=== PATIENT | male | born 1950 | race American Indian/Alaskan Native ===

== ENCOUNTER 2017-07-31 20:56 | Emergency (ER) | payer OTHER ==
[2017-07-31 21:26] VITALS: BP 152/88; PULSE 81; RESP 20; TEMP 98.4; O2SAT 98
[2017-07-31] MEDS ORDERED: Absorbable Gelatin Sponge Size 12-7 MM STA (21:38)
--- NOTE | 2017-07-31 21:41 | C.PDOC ---
History Of Present Illness 67 year old male with PMH of DM presents to ED for evaluation of wound to right pinky toe. He reports he was cutting his toenails with scissors, slipped and cut the tip of his toe. He reports the area was bleeding and wants to have wound evaluated, since he is diabetic. He is unsure of tetanus status. He does not take blood thinners. Time Seen by Provider: 07/31/17 21:31 Chief Complaint (Nursing): Abnormal Skin Integrity History Per: Patient History/Exam Limitations: no limitations Onset/Duration Of Symptoms: Hrs Current Symptoms Are (Timing): Still Present Location Of Injury: Right: Foot (Pinky) Quality Of Symptoms: Other (Wound bleeding) Severity: Mild Recent travel outside of the [place]: No Past Medical History Reviewed: Historical Data, Nursing Documentation, Vital Signs Vital Signs: Last Vital Signs Temp 98.4 F 07/31/17 21:20 Pulse 81 07/31/17 21:20 Resp 20 07/31/17 22:44 BP 152/88 H 07/31/17 21:20 Pulse Ox 98 07/31/17 21:55 - Medical History PMH: Diabetes, Hepatitis (C) Surgical History: No Surg Hx Family History: States: Unknown Family Hx - Social History Hx Alcohol Use: No Hx Substance Use: No Review Of Systems Except As Marked, All Systems Reviewed And Found Negative. Skin: Positive for: Other (Wound) Physical Exam - Physical Exam Appears: Non-toxic, No Acute Distress Skin: Warm, Dry Head: Atraumatic, Normacephalic Eye(s): bilateral: Normal Inspection Neck: Normal ROM Chest: Symmetrical Extremity: Normal ROM (x4), Capillary Refill (<2 seconds), Other (Right foot 5th toe distal volar tip with small 0.5cm avulsion with active bleeding) Pulses: Left Dorsalis Pedis: Normal, Right Dorsalis Pedis: Normal Neurological/Psych: Oriented x3, Normal Speech, Normal Motor, Normal Sensation Gait: Steady ED Course And Treatment O2 Sat by Pulse Oximetry: 98 (Room air) Pulse Ox Interpretation: Normal Medical Decision Making Medical Decision Making: Impression: 67 year old male with an avulsion wound to 5th digit of right foot. Plan: * Tetanus vaccination * Gel form Procedure: Wound irrigated with NS. Pressure gauze dressing applied. Avulsion wound continues to bleed. Gelfoam was applied to wound in normal sterile fashion. Patient was observed for hemostasis. On re-eval, the wound is no longer bleeding , hemostasis was achieved. Nonadherent dressing applied and bandage applied around toe and foot. Patient was instructed to remove bandage in one day and the non-adherent dressing. Explain gelfoam will fall off on its own. Disposition Counseled Patient/Family Regarding: Need For Followup - Disposition Referrals: Podiatry Clinic [Outside] Disposition: HOME/ ROUTINE Disposition Time: 21:38 Condition: GOOD Additional Instructions: Gelfoam was used to close your wound, do not apply ointment to area as it may dissolve glue. Gelfoam will gradually fall off in one week. Remove the dressing in 1-2 days Instructions: Skin Adhesive Care (ED) Forms: [facility] (Irish), Work Excuse - POA Present On Arrival: None - Clinical Impression Clinical Impression: Toe avulsion - Scribe Statement The provider has reviewed the documentation as recorded by the Scribradha Scherer All medical record entries made by the Normanibradha were at my direction and personally dictated by me. I have reviewed the chart and agree that the record accurately reflects my personal performance of the history, physical exam, medical decision making, and the department course for this patient. I have also personally directed, reviewed, and agree with the discharge instructions and disposition.
[2017-07-31] MEDS ORDERED: Absorbable Gelatin Sponge Size 12-7 ONE (21:43)
== END 2017-07-31 22:44 | disposition home or self-care (01) ==
LOC: C.ER 20:56
DX: S91.104A Unspecified open wound of right lesser toe(s) without damage to nail, initial encounter (principal); W45.8XXA Other foreign body or object entering through skin, initial encounter; Y93.E8 Activity, other personal hygiene